=== PATIENT | female | born 1950 | race Caucasian/White ===

== ENCOUNTER 2017-05-06 07:23 | Observation (INO) | payer MEDICARE, OTHER ==
[2017-05-06 07:55] LABS: #Basophils 0.1 thou/uL (0.0-0.2); #Lymphocytes 1.3 thou/uL (1.20-3.40); #Monocytes 0.8 thou/uL (0.11-0.59); %Basophils 1.4 % (0.0-1.0); %Eosinophils 0.6 % (0.0-10.0); %Monocytes 13.1 % (0.0-10.0); Hematocrit 38.8 % (36.0-47.0); Mean Platelet Volume 10.7 fL (7.4-10.4); Red Blood Cell (RBC) Count 4.55 mill/uL (4.20-5.40); White Blood Cell (WBC) Count 6.2 thou/uL (4.8-10.8)
[2017-05-06 08:07] LABS: ALT (SGPT) 18 U/L (8-55); AST (SGOT) 22 U/L (5-34); Alkaline Phosphatase 60 U/L (40-150); Anion Gap 15 mmol/L (10-20); BUN (Urea Nitrogen) 7 mg/dL (9.8-20.1); Bilirubin, Total 0.4 mg/dL (0.2-1.2); Calc. Creatinine Clearance 0 mL/min (70-130); Carbon Dioxide 24 mmol/L (23-31); Chloride 103 mmol/L (98-107); Estimated GFR-MDRD 79; Globulin 2.8 g/dL (2.4-3.5); Lipase 15 U/L (8-78)
[2017-05-06 08:08] LABS: Troponin I Less than 0.010 ng/mL (< 0.028)
--- NOTE | 2017-05-06 09:15 | RAD ---
FRONTAL RADIOGRAPH CHEST: DATE: 05/06/17. COMPARISON: None. HISTORY: Chest pain, chest pressure. FINDINGS: No pneumothorax or pleural fluid is seen. There is no focal consolidation or alveolar edema. The descending thoracic aorta appears tortuous. No acute osseous abnormality is evident. IMPRESSION: No focal consolidation or alveolar edema. POS: [facility]
[2017-05-06 10:55] VITALS: BMI 28.8
[2017-05-06 11:36] LABS: Troponin I Less than 0.010 ng/mL (< 0.028)
[2017-05-06] MEDS ORDERED: Milk Of Magnesia 30 ML UDCUP PO PRN (12:11)
[2017-05-06] MEDS ORDERED: Nitroglycerin 0.4 MG TAB (25 Tab Bottle) SL PRN (12:11)
[2017-05-06] MEDS ORDERED: Artificial Tears 18 DROP/0.9 ML EA EYE PRN (12:11)
[2017-05-06] MEDS ORDERED: Acetaminophen 325 MG TAB PO PRN (12:11)
[2017-05-06] MEDS ORDERED: Mag-Al 1200 mg/1200 mg/30 ML UDCUP PO PRN (12:11)
[2017-05-06] MEDS ORDERED: HYDROcodone/Acetaminophen 5/325 mg Tablet PO PRN (12:11)
[2017-05-06] MEDS ORDERED: Zolpidem Tartrate 5 MG TAB PO PRN (12:11)
[2017-05-06] MEDS ORDERED: Sodium Chloride 0.65% Nasal 44 ML BOT EA NARE PRN (12:11)
[2017-05-06] MEDS ORDERED: Ondansetron ODT 4 MG TAB PO PRN (12:11)
[2017-05-06] MEDS ORDERED: Loperamide HCl 2 MG CAP PO PRN (12:11)
[2017-05-06] MEDS ORDERED: Diabetic Tussin 200 MG/10 ML UDCUP PO PRN (12:11)
[2017-05-06] MEDS ORDERED: Ondansetron HCl/PF 4 MG/2 ML Vial IVP PRN (12:11)
[2017-05-06] MEDS ORDERED: Loratadine 10 MG TAB PO PRN (12:11)
[2017-05-06] MEDS ORDERED: Chloraseptic Spray 180 ml Bottle PO PRN (12:11)
[2017-05-06] MEDS ORDERED: Senokot 8.6 MG TAB PO PRN (12:11)
[2017-05-06] MEDS ORDERED: hydrALAZINE 20 MG/ML VIAL SLOW IVP PRN (12:11)
[2017-05-06] MEDS ORDERED: Eucerin (Mineral Oil/Petrolatum,White) 30 gm Jar TOP PRN (12:11)
--- NOTE | 2017-05-06 13:30 | HP ---
PRIMARY CARE PHYSICIAN: [place] call admission. REASON FOR ADMISSION: Chest pain. HISTORY OF PRESENT ILLNESS: A 67-year-old female with a past medical history of hypertension, dyslip idemia, who initially went to [facility] for evaluation of chest pain. Margie cohen reports that she woke up and subsequently she was experiencing left-sided pain, especially aroun d her left shoulder blade which was pressure-like sensation. She had diffuse diaphoresis. She did n ot have any shortness of breath. She denied any associated vomiting, but she was feeling mild nausea and she was feeling uneasiness. Patient was also suffering from her allergy symptoms and she had re cently cough and postnasal drip and sore throat. She was also experiencing chest wall pain because o f excessive coughing, but she did not have any fever. She did not have any relation of this discomfo rt with food, respiration or activity. She was evaluated at [facility]. She had routine blood test, which was unr emarkable. She had EKG, which was nonspecific ST-T changes. Chest x-ray was normal. Patient was gi lloyd aspirin and patient was pain free and subsequently, she was sent to our hospital for rule out acu te coronary syndrome. Patient denies any exertion related chest pain. She denies any orthopnea, PND or leg swelling. She denies any palpitations, dizziness, or syncope. She never had this type of problem before. The jagdish ent never had any cardiac workup recently. REVIEW OF SYSTEMS: The following complete review of systems was negative, unless otherwise mentioned in the HPI or below: CONSTITUTIONAL: Weight loss or gain, ability to conduct usual activities. SKIN: Rash, itching. EYES: Double vision, pain. ENT/MOUTH: Nose bleeding, neck stiffness, pain, tenderness. CARDIOVASCULAR: Palpitations, dyspnea on exertion, orthopnea. RESPIRATORY: Shortness of breath, wheezing, cough, hemoptysis, fever or night sweats. GASTROINTESTINAL: Poor appetite, abdominal pain, heartburn, nausea, vomiting, constipation, or diarr hea. GENITOURINARY: Urgency, frequency, dysuria, nocturia. MUSCULOSKELETAL: Pain, swelling. NEUROLOGIC/PSYCHIATRIC: Anxiety, depression. ALLERGY/IMMUNOLOGIC: Skin rash, bleeding tendency Please see my HPI for pertinent positives and negatives. All other review of system reviewed and neg ative except as mentioned in the HPI. PAST MEDICAL HISTORY: Hypertension, dyslipidemia. PAST SURGICAL HISTORY: x2. PAST PSYCHIATRIC HISTORY: Reviewed and negative. SOCIAL HISTORY: Patient is and lives at home with family. No history of tobacco, alcohol or illicit drug abuse. FAMILY HISTORY: No strong family history of premature coronary artery disease, stroke or cancer. ALLERGIES: No known drug allergies. CURRENT HOME MEDICATIONS: Toprol-XL 50 mg p.o. daily, losartan 50 mg p.o. daily. EMERGENCY ROOM COURSE: Patient is given aspirin 325 mg p.o. daily. PHYSICAL EXAMINATION: VITAL SIGNS: On arrival, blood pressure 148/91, pulse 66, respiratory rate 16, temperature 97.9, sat uration 97% on room air. Weight 74.8 kilograms. GENERAL: Patient is currently alert, awake, no obvious acute distress. HEAD: Normocephalic, atraumatic. EYES: Pupils round, reactive to light. Extraocular muscle intact. ENT: Oropharynx within normal limits. Moist mucous membranes. No oral lesions. No pharyngeal eryt sandeep, no exudate. NECK: Supple, no JVD, no thyromegaly, no carotid bruit, no meningeal signs of irritation. LUNGS: Clear to auscultation without any rhonchi or rales. CARDIAC: S1, S2 regular. No murmur, no gallop, no rub. ABDOMEN: Soft, bowel sounds present, nontender, nondistended. No organomegaly, no mass, no suprapub ic tenderness. BACK: Unremarkable, no CVA tenderness. EXTREMITIES: Upper extremity: Passive movement of all joints are normal. Lower extremity: No nathan a. Good peripheral pulsation. SKIN: No skin rash. HEMATOLOGICAL: No lymphadenopathy. PSYCHIATRIC: Normal affect. SIGNIFICANT LABS: EKG based on my review, normal sinus rhythm, nonspecific ST-T changes. Chest x-ra y based on my review, no acute cardiopulmonary process. CBC: WBC 6.2, hemoglobin 13.0, platelets 15 1. BMP: Sodium 138, potassium 3.8, chloride 103, carbon dioxide 24, anion gap 15, BUN 7, creatinine 0.73, glucose 118 and calcium 9.0. LFT: AST 22, ALT 18, alkaline phosphatase 60, albumin 4.2, lipa se 15. Cardiac enzymes negative x2. BNP 71.6. ASSESSMENT AND PLAN/IMPRESSION: 1. Chest pain. The patient's chest pain description is atypical. At this point, electrocardiogram is nonspecific. Cardiac enzymes are negative. Patient has low probability of coronary artery diseas e. The patient's description is unlikely to be any thromboembolic disorder. At this point, the jagdish ent will require observation and will do cardiac workup. We will monitor on telemetry floor. We wanda l do aspirin 325 mg p.o. daily, nitropatch q.8 hourly. Unfortunately, the patient took Toprol-XL thi s morning and that is why we cannot do a stress test today. We have to do it tomorrow morning. We w ill keep her n.p.o. after midnight. We will check lipid profile for risk stratification. We will al so continue nitropatch q.8 hourly and control her pain as needed basis. 2. Hypertension. We will continue losartan 50 mg p.o. daily and will hold on Toprol-XL for now. 3. Allergic rhinitis. We will continue the Flonase nasal spray, Claritin and Robitussin p.r.n. basi s while in hospital. 4. Deep venous thrombosis prophylaxis not needed because we are expecting discharge in 24 hours. 5. Gastrointestinal prophylaxis, Pepcid 20 mg p.o. b.i.d. 6. Code status: The patient is FULL CODE. Patient's is surrogate decision maker. Disposition plan based on stress test results, likely within 24 hours.
[2017-05-06] MEDS: Nitroglycerin 2% Ointment 1 INCH/1 GM Packet TOP SCH ×2 (14:20→23:56)
[2017-05-06 14:26] LABS: Troponin I Less than 0.010 ng/mL (< 0.028)
[2017-05-06] MEDS: Famotidine 20 MG TAB PO SCH (19:09)
[2017-05-06] MEDS: Fluticasone Propionate Nasal Spray 16 gm Bottle NASAL SCH (19:51)
[2017-05-07] MEDS: Nitroglycerin 2% Ointment 1 INCH/1 GM Packet TOP SCH (06:16)
[2017-05-07 06:55] VITALS: TEMP 97.9
[2017-05-07] MEDS ORDERED: Non-Formulary Item 1 EACH (Losartan Potassium [Cozaar] 50 MG) PO SCH (09:00)
[2017-05-07] MEDS ORDERED: Aspirin 325 MG TAB PO SCH (09:00)
[2017-05-07] MEDS ORDERED: Losartan 25 MG TAB PO SCH (09:00)
--- NOTE | 2017-05-07 10:19 | PDOC.PN ---
- Subjective Encounter Start Date: 05/07/17 Encounter Start Time: 09:30 -: old records requested/rev Patient seen and examined. No new complaints. No overnight events - Objective Resuscitation Status: Resuscitation Status FULL:Full Resuscitation MAR Reviewed: Yes Vital Signs & Weight: Vital Signs (12 hours) Temp Pulse Resp BP Pulse Ox 05/07/17 07:02 97.9 F 63 16 05/07/17 06:54 97.9 F 63 16 137/83 95 05/07/17 03:50 98.9 F 59 L 16 129/58 L 93 L Weight Weight 173 lb 3.2 oz I&O: 05/06/17 05/07/17 05/08/17 06:59 06:59 06:59 Intake Total 1150 Balance 1150 Result Diagrams: 05/06/17 07:35 05/06/17 07:35 EKG Reviewed by me: Yes Phys Exam - Physical Examination Constitutional: NAD HEENT: PERRLA, moist MMs, sclera anicteric Neck: no JVD, supple Respiratory: no wheezing, no rales, no rhonchi Cardiovascular: RRR, no significant murmur, no rub Gastrointestinal: soft, non-tender, no distention, positive bowel sounds Musculoskeletal: no edema, pulses present Neurological: non-focal, normal sensation Lymphatic: no nodes Psychiatric: normal affect Skin: no rash, normal turgor Dx/Plan (1) Chest pain Code(s): R07.9 - CHEST PAIN, UNSPECIFIED Status: Acute (2) Dyslipidemia Code(s): E78.5 - HYPERLIPIDEMIA, UNSPECIFIED Status: Chronic (3) Hypertension Code(s): I10 - ESSENTIAL (PRIMARY) HYPERTENSION Status: Chronic - Plan cont current plan of care * medication reviewed as below * symptomatic treatment * await stress test result if normal, will discharge. Review of Systems - Review of Systems ENT: negative: Ear Pain, Ear Discharge, Nose Pain, Nose Discharge, Nose Congestion, Mouth Pain, Mouth Swelling, Throat Pain, Throat Swelling, Other Respiratory: negative: Cough, Dry, Shortness of Breath, Hemoptysis, SOB with Excertion, Pleuritic Pain, Sputum, Wheezing Cardiovascular: negative: Chest Pain, Palpitations, Orthopnea, Paroxysmal Noc. Dyspnea, Edema, Light Headedness, Other Gastrointestinal: negative: Nausea, Vomiting, Abdominal Pain, Diarrhea, Constipation, Melena, Hematochezia, Other Genitourinary: negative: Dysuria, Frequency, Incontinence, Hematuria, Retention , Other Musculoskeletal: negative: Neck Pain, Shoulder Pain, Arm Pain, Back Pain, Hand Pain, Leg Pain, Foot Pain, Other Skin: negative: Rash, Lesions, Ethan, Bruising, Other - Medications/Allergies Allergies/Adverse Reactions: Allergies Allergy/AdvReac Type Severity Reaction Status Date / Time No Known Allergies Allergy Unverified 05/06/17 10:50 Medications: Current Medications Acetaminophen (Tylenol) 650 mg PO Q4H PRN PRN Reason: Headache/Fever or Pain Hydrocodone Bitart/Acetaminophen ([place] 5/325) 1 tab PO Q4H PRN PRN Reason: Moderate Pain (4-6) Al Hydroxide/Mg Hydroxide (Maalox) 30 ml PO Q6H PRN PRN Reason: Heartburn or Indigestion Artificial Tears (Tears Naturale) 0 drop EA EYE PRN PRN PRN Reason: Dry Eyes Aspirin (Aspirin) 325 mg PO DAILY [facility] Famotidine (Pepcid) 20 mg PO BID [facility] Last Admin: 05/06/17 19:09 Dose: 20 mg Fluticasone Propionate (Flonase Nasal [place]) 0 gm NASAL BID [facility] Last Admin: 05/06/17 19:51 Dose: 2 spray Guaifenesin (Robitussin Sf) 200 mg PO Q4H PRN PRN Reason: Cough Hydralazine HCl (Apresoline) 10 mg SLOW IVP Q4H PRN PRN Reason: Systolic BP > 180 Loperamide HCl (Imodium) 2 mg PO PRN PRN PRN Reason: Diarrhea/Loose Stools Loratadine (Claritin) 10 mg PO DAILYPRN PRN PRN Reason: Sinus Symptoms Losartan Potassium (Cozaar) 50 mg PO DAILY [facility] Magnesium Hydroxide (Milk Of Magnesium) 30 ml PO DAILYPRN PRN PRN Reason: Constipation Mineral Oil/White Petrolatum (Eucerin Cream) 0 gm TOP BIDPRN PRN PRN Reason: Dry Skin Nitroglycerin (Nitro-Bid 2% Ointment) 0.5 inch TOP Q8HR [facility] Last Admin: 05/07/17 06:16 Dose: Not Given Nitroglycerin (Nitrostat) 0.4 mg SL Q5MIN PRN PRN Reason: Chest Pain Ondansetron HCl (Zofran Odt) 4 mg PO Q6H PRN PRN Reason: Nausea/Vomiting Ondansetron HCl (Zofran) 4 mg IVP Q6H PRN PRN Reason: Nausea/Vomiting Phenol (Chloraseptic [place] 180 Ml Bot) 0 ml PO PRN PRN PRN Reason: Sore Throat Senna (Senokot) 2 tab PO HSPRN PRN PRN Reason: Constipation Sodium Chloride ([place] Nasal [place] 0.65%) 0 ml EA NARE QIDPRN PRN PRN Reason: Nasal Congestion Sodium Chloride (Flush - Normal Saline) 10 ml IVF Q12HR [facility] Last Admin: 05/06/17 19:10 Dose: 10 ml Sodium Chloride (Flush - Normal Saline) 10 ml IVF PRN PRN PRN Reason: Saline Flush Zolpidem Tartrate (Ambien) 5 mg PO HSPRN PRN PRN Reason: Insomnia
[2017-05-07] MEDS ORDERED: ADENOSINE 60 MG/20 ML VIAL ONE (11:17)
--- NOTE | 2017-05-07 11:42 | DIS ---
DATE OF ADMISSION: 05/06/2017 DATE OF DISCHARGE: 05/07/2017 PRIMARY CARE PHYSICIAN: [place] call admission. DISCHARGE DISPOSITION: Home. PRIMARY DISCHARGE DIAGNOSIS: Chest pain, ruled out acute coronary syndrome. SECONDARY DISCHARGE DIAGNOSES: Hypertension and dyslipidemia. PRIMARY PROCEDURE/OPERATION: None. RADIOLOGICAL INVESTIGATION: Chest x-ray was normal. Stress test is pending result. SIGNIFICANT LABORATORY DATA: CBC normal. BMP normal. LFTs normal. Cardiac enzymes negative. BNP 71.6, LDL 109, and HDL 43. DISCHARGE MEDICATIONS: Aspirin 81 mg p.o. daily, Pepcid 20 mg p.o. b.i.d., Cozaar 50 mg p.o. daily, Toprol-XL 50 mg p.o. daily. CONTRAINDICATIONS: None. CODE STATUS: FULL CODE. INPATIENT CONSULTANTS: None. ALLERGIES: No known drug allergy. DISCHARGE PLAN: Post hospital, patient will follow up with primary care physician in 1 week. HOSPITAL COURSE: A 67-year-old female who was admitted by me yesterday. Please see my HPI for further details. She was admitted for left-sided scapular pain and some weird chest pain. She was also having allergy symptoms. Her chest x-ray was normal. Her routine evaluation in the emergency room including cardiac enzyme and EKG was normal. Her routine blood test was also normal. She was transferred from [facility] ER to our hospital for rule out acute coronary syndrome and we did serial cardiac enzymes and ruled out acute coronary syndrome. We also did stress test. Official report of stress test is pending, but once stress test comes back negative, then we will consider discharging her home later on today. The patient is seen and examined at bedside today. Plan of care discussed with the family member. Please see my progress note from today for further details. STRESS TEST IS NORMAL AND NOTIFIED RESULT TO PT OSCAR
[2017-05-07] MEDS: Fluticasone Propionate Nasal Spray 16 gm Bottle NASAL SCH (11:48)
[2017-05-07] MEDS: Famotidine 20 MG TAB PO SCH (11:49)
[2017-05-07 11:55] VITALS: BP 132/76
--- NOTE | 2017-05-07 14:18 | NM ---
CARDIAC SPECT WITH EF AND WALL MOTION: HISTORY: A 67-year-old female with chest pain, hypertension, dyslipidemia. Adenosine sestamibi study is performed. The patient was injected with 31 mCi Technetium 99m sestamibi intravenously for stress images and the patient was injected with 30.3 mCi Technetium 99m sestamibi intravenously for resting images. Multiple SPECT images in the short axis, vertical long axis, and horizontal long axis demonstrate no scan evidence for infarct or ischemia. TID 0.91. LHR 0.0.18. EDV 89 mL. EF is 64%. MYOCARDIAL PERFUSION WALL MOTION: Wall motion is normal. IMPRESSION: Normal cardiac SPECT with ejection fraction and wall motion. POS: [facility]
== END 2017-05-07 12:36 | disposition home or self-care (01) ==
LOC: SCSER 07:23 → 2SW 10:35
PROVIDERS: ADMIT Internal Medicine; ATTEND Internal Medicine
DX: R07.9 Chest pain, unspecified (principal); I10 Essential (primary) hypertension; E78.5 Hyperlipidemia, unspecified; J30.9 Allergic rhinitis, unspecified; Z79.899 Other long term (current) drug therapy; Z98.890 Other specified postprocedural states
CPT/HCPCS: 71010; 78452; 80053; 80061; 82553; 83690; 83880; 84484 ×2; 85025; 93005; 93017; 94760; 99285; A9500; G0378; 36415; A4216; J0153

== ENCOUNTER 2017-11-04 11:07 | Outpatient (CLI) | payer MEDICARE, OTHER | END 2017-11-04 11:08 | disposition home or self-care (01) | LOC: BICMAMMO 11:07 | PROVIDERS: ATTEND Internal Medicine | DX: Z12.31 Encounter for screening mammogram for malignant neoplasm of breast (principal) | CPT/HCPCS: 77063; 77067 ==

== ENCOUNTER 2019-12-13 11:16 | Outpatient (CLI) | payer MEDICARE, OTHER ==
--- NOTE | 2019-12-13 13:10 | MMO ---
Bilateral MAMMO Bilat Screen [facility]. CLINICAL HISTORY: Patient is 69 years old and is seen for screening. The patient has no family history of breast cancer. The patient has no personal history of cancer. VIEWS: The views performed were: bilateral craniocaudal with tomosynthesis and bilateral mediolateral oblique with tomosynthesis. FILMS COMPARED: The present examination has been compared to prior imaging studies performed at [facility] on 09/26/2015, 09/30/2016, 11/04/2017 and 11/11/2018. This study has been interpreted with the assistance of computer-aided detection. MAMMOGRAM FINDINGS: The breasts are heterogeneously dense, which could obscure a lesion on mammography. Benign calcifications are noted bilaterally. There are no suspicious masses, suspicious calcifications, or new areas of architectural distortion. IMPRESSION: THERE IS NO MAMMOGRAPHIC EVIDENCE OF MALIGNANCY. A ROUTINE FOLLOW-UP MAMMOGRAM IN 1 YEAR IS RECOMMENDED. THE RESULTS OF THIS EXAM WERE SENT TO THE PATIENT. ACR BI-RADS Category 2 - Benign finding MAMMOGRAPHY NOTE: 1. A negative mammogram report should not delay a biopsy if a dominant of clinically suspicious mass is present. 2. Approximately 10% to 15% of breast cancers are not detected by mammography. 3. Adenosis and dense breasts may obscure an underlying neoplasm. Reported by: TONIO REDDY MD Electonically Signed: [id number]
== END 2019-12-13 11:17 | disposition home or self-care (01) ==
LOC: BICMAMMO 11:16
PROVIDERS: ATTEND Internal Medicine
DX: Z12.31 Encounter for screening mammogram for malignant neoplasm of breast (principal)
CPT/HCPCS: 77063; 77067